=== PATIENT | male | born 1995 | race Asian ===

== ENCOUNTER 2020-08-10 01:12 | Emergency (ER) | payer OTHER ==
[~2020-08-10] VITALS: Ht 167.6 cm; Wt 61.2 kg
[2020-08-10 01:24] VITALS: Ht 167.6 cm; Wt 61.2 kg
[2020-08-10 02:38] VITALS: BP 124/71
== END 2020-08-10 02:34 | disposition home or self-care (01) ==
LOC: ED 01:12
DX: S81.812A Laceration without foreign body, left lower leg, initial encounter (principal); W20.8XXA Other cause of strike by thrown, projected or falling object, initial encounter; Y93.89 Activity, other specified; Y92.89 Other specified places as the place of occurrence of the external cause; Y99.8 Other external cause status
CPT/HCPCS: J2001